=== PATIENT | female | born 1980 | race Caucasian/White ===

== ENCOUNTER → 2017-09-19 | Outpatient (CLI) | payer OTHER ==
[~2017-09-19] MED LIST: ACET325; OXYACE5T PO
== END | disposition home or self-care (01) ==
LOC: LAB EV 14:01
DX: N39.0 Urinary tract infection, site not specified (principal)
CPT/HCPCS: 87077; 87086; 87186

== ENCOUNTER → 2019-12-08 | Outpatient (CLI) | payer OTHER | END | disposition home or self-care (01) | LOC: LAB SHORT 10:47 → LAB EV 10:47 | DX: N39.0 Urinary tract infection, site not specified (principal) | CPT/HCPCS: 87077; 87086; 87186 ==

== ENCOUNTER → 2020-07-22 | Outpatient (CLI) | payer OTHER | LOC: LAB SHORT 08:51 | DX: N39.0 Urinary tract infection, site not specified (principal) | CPT/HCPCS: 87086 ==

== ENCOUNTER → 2020-08-13 | Outpatient (CLI) | payer OTHER ==
[2020-08-15 15:08] LABS: HPV 16 Negative (Negative); HPV 18 Negative (Negative); HPV OTHER HR TYPES Positive (Negative)
== END | disposition home or self-care (01) ==
LOC: LAB SHORT 15:41 → LAB 15:41
PROVIDERS: Obstetrics & Gynecology
DX: Z12.31 Encounter for screening mammogram for malignant neoplasm of breast (principal)
CPT/HCPCS: 87624; 87625; G0123

== ENCOUNTER → 2021-09-02 | Outpatient (CLI) | payer OTHER ==
[2021-09-04 14:12] LABS: HPV 16 Negative (Negative); HPV 18 Negative (Negative); HPV OTHER HR TYPES Negative (Negative)
== END | disposition home or self-care (01) ==
LOC: LAB SHORT 14:18
PROVIDERS: Obstetrics & Gynecology
DX: R87.810 Cervical high risk human papillomavirus (HPV) DNA test positive (principal)
CPT/HCPCS: 87624; 88142

== ENCOUNTER → 2022-09-07 | Outpatient (CLI) | payer OTHER ==
[2022-09-09 13:08] LABS: HPV 16 Negative (Negative); HPV 18 Negative (Negative); HPV OTHER HR TYPES Negative (Negative)
== END | disposition home or self-care (01) ==
LOC: LAB 17:18 → LAB SHORT 17:18
PROVIDERS: Obstetrics & Gynecology
DX: Z12.4 Encounter for screening for malignant neoplasm of cervix (principal)
CPT/HCPCS: 87624; G0145

== ENCOUNTER 2024-07-10 05:53 | Day surgery (SDC) | payer OTHER ==
[~2024-07-10] VITALS: Ht 165.1 cm; Wt 79.1 kg
[2024-07-10] VITALS (13 sets, daily range): BP systolic 108–129; BP diastolic 66–91
[2024-07-10] MEDS ORDERED: Lactated Ringer's 1,000 ML IV SCH ×2 (06:20→09:25)
[2024-07-10] MEDS ORDERED: CeFAZolin Sodium 2,000 MG in NS 100 ML IV SCH (06:20)
[2024-07-10] MEDS ORDERED: CeFAZolin Sodium 2,000 MG VIAL ONE (06:47)
--- NOTE | 2024-07-10 06:51 | NUR ---
Pre-Op teaching done. Pt verbalizes understanding. History, Chart, Medications and Allergies reviewed before start of procedure. Patient confirms NPO status and agrees with scheduled surgery. PT BELONGINGS BAG PLACED UNDER BED. PT UNABLE TO REMOVE NIPPLE PIERCINGS AND NOSE RING. SUNNI REFUSAL PAPERWORK SIGNED.
[2024-07-10] MEDS ORDERED: Bupivacaine 0.5% HCl 5 MG/ML 30MLVIAL ONE (07:04)
[2024-07-10] MEDS ORDERED: propofoL 20 ML IV ONE (07:24)
[2024-07-10] MEDS ORDERED: Ondansetron HCl 2 MG / ML 2ML Vial ONE (07:25)
[2024-07-10] MEDS ORDERED: Rocuronium Bromide 10 MG/ML 5ML Injection IV ONE ×2 (07:25→08:15)
[2024-07-10] MEDS ORDERED: Ketorolac Tromethamine 30mg Vial ONE (07:25)
[2024-07-10] MEDS ORDERED: Dexamethasone Sod Phos 10 MG/ML 1ML VIAL ONE (07:25)
[2024-07-10] MEDS ORDERED: FentaNYL Citrate 50 MCG/ML 5 ML Injection ONE (07:25)
[2024-07-10] MEDS ORDERED: Lidocaine HCl 2% 20 ML MDV ONE (07:25)
[2024-07-10] MEDS ORDERED: Midazolam HCl 1MG / ML 2ML Vial IV SCH (07:25)
[2024-07-10] MEDS ORDERED: Artificial Tear Opth Oint 3.5 GM ONE (07:35)
[2024-07-10] MEDS ORDERED: Albuterol 2.5 MG/3 ML VIAL INH PRN (07:50)
[2024-07-10] MEDS ORDERED: HYDROmorphone HCl/Pf 1MG SYR IV PRN ×2 (07:50→09:30)
[2024-07-10] MEDS ORDERED: Droperidol 5 mg/2 ml Vial IV PRN (07:50)
[2024-07-10] MEDS ORDERED: FentaNYL Citrate 50 MCG/ML 2 ML Injection IV PRN (07:50)
[2024-07-10] MEDS ORDERED: HYDROmorphone HCl/Pf 1MG SYR ONE ×2 (08:49→09:47)
[2024-07-10] MEDS ORDERED: Sugammadex Sodium 200 MG/2ML SDV (100 MG/ML) ONE (08:49)
[2024-07-10] MEDS ORDERED: Lidocaine 1%-Epineph 1:100000 20 ML MDV XX ONE ×2 (09:03)
[2024-07-10] MEDS ORDERED: Metoclopramide HCl 5MG / ML 2ML Vial IV PRN (09:25)
[2024-07-10] MEDS ORDERED: OxyCODONE HCL 5 MG TAB PO PRN (09:25)
[2024-07-10] MEDS ORDERED: Metoclopramide HCl 10 MG Tab PO PRN (09:30)
[2024-07-10] MEDS ORDERED: DiphenhydrAMINE HCL 25 MG Cap PO PRN (09:30)
[2024-07-10] MEDS ORDERED: Naloxone HCl 0.4MG / ML 1ML Vial IV PRN (09:30)
[2024-07-10] MEDS ORDERED: Acetaminophen 500 MG Tab PO PRN (09:30)
[2024-07-10] MEDS ORDERED: FLU VACC TS2024-25(6MOS UP)/PF 45 MCG/0.5 ML SYRINGE IM SCH (09:30)
[2024-07-10] MEDS ORDERED: Ondansetron 4 MG TAB PO PRN (09:30)
[2024-07-10] MEDS ORDERED: Ondansetron HCl 2 MG / ML 2ML Vial IV PRN (09:30)
[2024-07-10] MEDS ORDERED: Ketorolac Tromethamine 30mg Vial IV PRN (09:35)
--- NOTE | 2024-07-10 10:15 | NUR ---
ARRIVAL TO SURGICAL UNIT VIA GOURNEY, SLID TO HOSPITAL BED. ALERT, ORIENTED, & PLEASANT. ABD SOFT w/ LAP SITES x 4 COVERED w/ WOUND GLUE. NO DRNG OR BRUISING NOTED. LUNGS CLEAR & HRR. C/O DISCOMFORT TO ABD & L SHOULDER PAIN. SNACKS & WATER GIVEN. DENIES N/V.
[2024-07-10] MEDS ORDERED: Simethicone 80 MG Chew PO PRN (10:30)
[2024-07-10] MEDS ORDERED: ACET500 PO (12:46)
[2024-07-10] MEDS ORDERED: OXYC5 PO (12:47)
[2024-07-10] MEDS ORDERED: SIME80CH PO (12:48)
[2024-07-10] MEDS ORDERED: IBUP400 PO (12:48)
--- NOTE | 2024-07-10 13:20 | NUR ---
DISCHARGE PAIN WELL CONTROLLED. EATING, DRINKING, & VOIDED w/ PVR SCANT. C/O SHOULDER PAIN. EDUCATED. SCANT VAGINAL BLEEDING. ESCORTED OUT VIA WC.
== END 2024-07-10 13:15 | disposition home or self-care (01) ==
LOC: ORSCMMR 05:53 → ORD 07:30 → ORSCMMR 07:30 → SURS 10:04 → ORSCMMR 13:15
PROVIDERS: Obstetrics & Gynecology
PROC: 0UT7FZZ Resection of Bilateral Fallopian Tubes, Via Natural or Artificial Opening With Percutaneous Endoscopic Assistance (ICD-10-PCS; principal; 2024-07-10 07:30)
PROC: 0TSD0ZZ Reposition Urethra, Open Approach (ICD-10-PCS; principal; 2024-07-10 07:30)
PROC: 0UT9FZZ Resection of Uterus, Via Natural or Artificial Opening With Percutaneous Endoscopic Assistance (ICD-10-PCS; principal; 2024-07-10 07:30)
DX: N92.0 Excessive and frequent menstruation with regular cycle (principal); N80.03 Adenomyosis of the uterus; D25.9 Leiomyoma of uterus, unspecified; N83.8 Other noninflammatory disorders of ovary, fallopian tube and broad ligament; N39.3 Stress incontinence (female) (male)
CPT/HCPCS: 86850; 86900; 86901; 88307; A9270; C1771; J0690; J1100; J1171; J1885; J2250; J2405; J2704; J3010; J7120